=== PATIENT | female | born 1990 | race Caucasian/White ===

== ENCOUNTER 2017-02-18 09:41 | Inpatient (IN) | payer OTHER ==
[~2017-02-18] VITALS: Ht 170.2 cm; Wt 108.4 kg
[2017-02-18] MEDS ORDERED: Hemorrhage Kit, Post Partum XX ONE (10:50)
[2017-02-18] MEDS ORDERED: fentaNYL-PF 50 mCg/mL 2 mL Inj IVPUSH PRN (10:50)
[2017-02-18] MEDS ORDERED: Carboprost 250 mCg/mL Inj IM PRN (10:50)
[2017-02-18] MEDS ORDERED: Oxytocin 30 Units/500 mL LR 30 UNITS in IV Premix 1 EACH IV PRN (10:50)
[2017-02-18] MEDS ORDERED: Lactated Ringer's 1,000 ML IV PRN (10:50)
[2017-02-18] MEDS ORDERED: Sodium Chloride LOK Flush 10 mL Syringe IVFLUSH PRN (10:50)
[2017-02-18] MEDS ORDERED: Methylergonovine 0.2 mg/mL Inj IM PRN (10:50)
[2017-02-18] MEDS ORDERED: Ondansetron 2 mg/mL 2 mL Inj IVPUSH PRN ×2 (10:50→15:45)
[2017-02-18] MEDS ORDERED: Oxytocin 10 Unit/mL Inj IM PRN (10:50)
[2017-02-18 11:02] LABS: Mean Corpuscular Volume 89.6 fL (81-100)
[2017-02-18] MEDS: Lactated Ringer's 1,000 ML IV SCH ×5 (13:17→23:42)
--- NOTE | 2017-02-18 13:43 | HP ---
[address] [address] HISTORY AND PHYSICAL PATIENT: IMTIAZ RO : 1990 MR#: [id number] ADMIT: 02/18/2017 JOB ID: [id number] CHIEF COMPLAINT: Spontaneous rupture of membranes. HISTORY OF PRESENT ILLNESS: This is a 27-year-old G 1, P 0 female at 39 + 5 weeks gestation with an estimated date of confinement of February 20, 2017, complaining of spontaneous rupture of membranes at approximately 7 this morning. Her is complicated by obesity with BMI of 39. This is a 27-year-old G 1, P 0 female presenting at 39 + 5 weeks gestation with an EDC of February 20, 2017, complaining of spontaneous rupture of membranes. Her was dated by first trimester ultrasound. Her was complicated by obesity. At the time of admission, she notes normal movement. No loss of fluid. Contractions every 3 minutes. No vaginal bleeding. PAST MEDICAL HISTORY: Denies. PAST SURGICAL HISTORY: Denies. OBSTETRICAL HISTORY: G 1, P 0 as noted above. SOCIAL HISTORY: No tobacco, alcohol or drug use. MEDICATIONS: Include vitamins. ALLERGIES: She has no known drug allergies. LABORATORY DATA: Showed blood type AB positive, antibody screen negative, rubella immune, varicella immune, hep B surface antigen negative, RPR nonreactive, HIV negative, GBS negative. Objectively, her blood pressure is 119/70, her heart rate is 84, her respiratory rate is 17, her temperature is 36 degrees. In general, she is awake, alert, oriented, in no acute distress. She does breathe through her contractions. Her abdomen is soft. It is nontender, nondistended. EFW is approximately 9 pounds. Extremities show no tenderness or edema. Vaginal exam by the nurse shows that she is 2.5 cm dilated, 60% effaced and -2 station which is unchanged after two 2 hours after admission. heart tones show 145 baseline, moderate variability with accelerations present. She is dayday every 2-6 minutes. ASSESSMENT AND PLAN: This is a 27-year-old G 1, P 0, at 39 + 5 weeks gestational age admitted for spontaneous rupture of membranes at term. complicated by obesity. PLAN: She did rupture approximately 6 hours ago with light meconium present. She is dayday but has noted minimal cervical change so Pitocin will be started at this time. She is GBS negative and no antibiotics are indicated. We will continue to titrate Pitocin per protocol. We will continue expectant management at this time.
[2017-02-18] MEDS ORDERED: Lactated Ringer's 500 ML IV ONE (15:42)
[2017-02-18] MEDS ORDERED: EPHEDrine Sulfate 50 mg/mL Inj IVPUSH PRN (15:45)
[2017-02-18] MEDS ORDERED: Atropine 1 mg/10 mL (Code) Syringe IVPUSH PRN (15:45)
--- NOTE | 2017-02-18 15:50 | PCM.HPANE ---
Patient Data Surgeon Admitting Provider:Sheryl Linares MD Attending Provider:Sheryl Linares MD Primary Care Physician:Aurora Morgan Other Provider: Reason for Visit LABOR LABOR Ht/WT & BMI Body Mass Index Allergies Coded Allergies: No Known Allergies (Unverified , 02/18/17) Past Anesthesia History Anesthesia History: Denies:: Abnormal Airway, Anesthesia Reactions, Difficult Intubation, Fam Anesthesia Reaction, Fam Malignant Hypertherm, Malignant Hyperthermia History History of ENT Problems?: No HEENT History: Denies:: Abnormal Airway Cataracts Difficult Intubation Dysphagia Glaucoma Hearing Problem Sinus Problem TMJ Denture Type: None Teeth Condition: Within Normal Limits (Tongue Piercing) Hx of Heart Problems?: No Cardiovascular History: Denies:: AICD Abdominal Aortic Aneurism Atrial Fibrillation Cardiac Surgery Chest Pain Congestive Heart Failure Coronary Artery Disease Edema Heart Murmur Hypertension Irregular Heartbeat Pacemaker Peripheral Vascular Rheumatic Fever Thrombophlebitis Valvular Heart Disease Hx of Respiratory Problem?: No Respiratory History: Denies:: Asthma COPD Chest Surgery Cough Dyspnea Emphysema Hemoptysis Oxygen Administration Pneumonia Pulmonary Embolism Tuberculosis Use of C-PAP Machine Use of Inhalers / NEBS Hx Neurologic Problems?: No Neurological History: Denies:: Alzheimer's Disease CVA Dementia Dizziness Headaches Multiple Sclerosis Parkinson's Disease Peripheral Neuropathy Seizures TIA Hx of GI Problems?: No Gastrointestinal History: Denies:: Cirrhosis Diverticulitis Gall Bladder Disease Gastroesphageal Reflux Gastrointestinal Bleeding Heartburn Hepatitis Hiatal Hernia Liver Disease Rectal Bleeding Hx of Problems?: No Genitourinary History: Denies:: HX of Hemodialysis Kidney Stones Urinary Tract Infection HX of Peritoneal Dialysis: No Female Hx: Denies:: Currently Endometriosis Pelvic Inflammatory Problems with Breasts? Skin History: Denies:: History Skin Disorders? Pressure Ulcers Hx Musculoskeletal Problems?: No Musculoskeletal History: Denies:: Back Injury Degenerative Joint Fibromyalgia Joint Replacement Musculoskeletal Trauma Myasthenia Gravis Osteoarthritis Rheumatoid Arthritis Systemic Lupus Hx of Psycho/Social Problems?: No Psycho Social History: Denies:: Anxiety Bipolar Disorder Hx Depression Suicide Attempt Hx Surgeries?: No Hx Any Other Health Problems?: No Other History: Denies:: Cancer Endocrine Disease Hospitalization Thyroid Disease History Blood Transfusions: Denies:: Accept Blood Products? Blood Transfuse Reaction Blood Transfusions Hx Diabetes: No Hx Alcohol Use: NoHx Substance Use: No Smoking Status: Never Smoker Have You Smoked inLast 12 mo: No Stop/Bang Risk Assessment Category Category 1A: Patient has history of documented sleep apnea, and HAS NOT received any narcotic, sedative or anesthesia administration during this stay. Category 1B: Patient has history of documented sleep apnea, and HAS received any narcotic , sedative or anesthesia administration during this stay Category 2: Patient has SUSPECTED Obstructive Sleep Apnea, and HAS received any narcotic , sedative or anesthesia administration during this stay. Category 3: Patient has SUSPECTED Obstructive Sleep Apnea and HAS NOT received narcotic, sedative or anesthesia administration during this stay. Category 4: Outpatient in Procedural Areas with known sleep apnea or who screen positive for High Risk via the STOP/BANG questionnaire. Exam Exam General Appearance: Alert, Oriented X3, Cooperative, No Acute Distress HEENT/AIRWAY: MP 2, Neck Movement (from), Mouth Opening (moderate opening, Removal Tongue Piercing) Lungs: Normal Air Movement Heart: Exam Unremarkable Meds/Labs/Diagnostics Admission Meds Current Medications Lactated Ringer's (Lr) 1,000 ml @ 125 mls/hr Q8H IV Last administered on t 13:17; Start 02/18/17 at 10:50 Labs Test 02/18/17 09:45 White Blood Count 12.9th/mm3 (3.8-10.1) Red Blood Count 4.33mil/mm3 (3.90-5.20) Hemoglobin 13.0g/dL (12.0-15.6) Hematocrit 38.8% (35.0-46.0) Mean Corpuscular Volume 89.6fL (81-100) Mean Corpuscular Hemoglobin 30.0pg (27.0-35.0) Mean Corpuscular Hemoglobin Concent 33.5% (32.0-37.0) Red Cell Distribution Width 13.2% (12.3-15.4) Platelet Count 285bil/L (150-400) Plan Impression Patient chart reviewed, patient interviewed and anesthestic plan with risks, benefits, and alternatives discussed, and informed consent obtained. NPO per Anesth. Guidelines: No ASA Physical Status: ASA2 Mod Systemic Disease Anesthetic Plan: Epidural Bene/Risks/Altern/Consents: Yes HP Complete Prior to Induction: Yes Juan Antonio Cuba MD February 18, 2017 15:50
[2017-02-18] MEDS: Sodium Chloride LOK Flush 10 mL Syringe IVFLUSH SCH (16:30)
[2017-02-18] MEDS ORDERED: Acetaminophen IV 1,000 MG in IV Premix 1 EACH IV ONE (19:20)
--- NOTE | 2017-02-18 20:16 | PCM.ANEP1 ---
Post Anesthesia Phase 1 PACU Phase 1 Assessment Anesthetic Administered: Epidural Level of Alertness: Awake, talking WILKS's with Equal Strength: No Pain: Yes Nausea or Vomiting: No Cardiovascular Function and Hy: No Lungs: Normal Air Movement Dermatome Level: T10 (Umbilicus) Complications: No Follow up Care: No Juan Antonio Cuba MD February 18, 2017 20:16
[2017-02-19] MEDS: Sodium Chloride LOK Flush 10 mL Syringe IVFLUSH SCH ×3 (00:30→19:00)
[2017-02-19] MEDS: Lactated Ringer's 1,000 ML IV SCH ×5 (01:12→22:31)
[2017-02-19] MEDS: fentaNYL 2 mCg/mL-Bupiv 0.125% 100 ML EPIDURAL SCH ×2 (02:53→10:24)
[2017-02-19] MEDS ORDERED: Ketamine 10 mg/mL 20 mL Inj ONE (11:35)
[2017-02-19] MEDS ORDERED: fentaNYL-PF 50 mCg/mL 2 mL Inj ONE (11:35)
[2017-02-19] MEDS ORDERED: Sodium Citrate-Citric Acid 15 mL Solution PO SCH (12:45)
[2017-02-19] MEDS ORDERED: CeFAZolin Inj 2 GM in IV Premix 1 EACH IV ONE (12:45)
--- NOTE | 2017-02-19 13:50 | PROG NOTE ---
[address] [address] PROGRESS NOTE PATIENT: IMTIAZ RO : 1990 MR#: [id number] ADMIT: 02/18/2017 JOB ID: [id number] DATE: 02/19/2017 SUBJECTIVE: A 27-year-old female 1, para 0, at full term presented to [facility] for rupture of membranes yesterday at 7 o'clock. She has been started on Pitocin induction. She had slow progress in the latent phase and eventually she was noted to be 5 cm dilated this morning at 5:30. At that time , her Pitocin was in 20 units. When I saw her at 7:30, she was re-examined and noticed to be 6 cm dilation, -1 station. Her cervix was 80% effaced with more swollen on the right side and the baby was LOT position. IUPC was placed to have a better evaluation of contractions. At that time, it was noted she has a contraction every 3-4 minutes. With a single contraction it is about 50 [place]. The goal was achieved for her contraction to 180 [place] in 10 minutes and then re-evaluate her cervical dilation in 4 hours. At around 10:20, I replaced the IUPC because not a good monitor of her contractions and also decision was made to stop her Pitocin for 20 minutes and restart at a higher dose because of the frequent flat pattern which noticed before. After this, it was noted she started to have regular stronger contractions, gradually became more frequent. Before I came to re-evaluate her at 12:20, her contraction was adequate every 3-4 minutes and eight in 10 minutes was mostly above 180. I reexamined her. Her cervix still the same dilation with 80% effaced, and swelling more on the right side and station the same. There was a caput about 2-3 cm. heart tracing mostly in the labor process was reassuring. After I examined the patient, the heart tracing goes as high as 180, but with moderate variability. She has no fever. Her temperature was 37.1. At this time no other signs of chorio. I discussed with the patient of the finding and discussion about her labor process. We talked about she be ruptured more than 24 hours and there was minimal progress in the last 7 hours with adequate contractions. The decision was made to have a primary section. Discussed with the patient about the indication, benefits, risks of procedure. Informed consent signed. The patient understood the risk of infection, bleeding, injury to the organs around the uterus including but not limited to the bladder, ureters, major vessels, nerves. Informed consent signed. GABY
[2017-02-19] MEDS ORDERED: Lactated Ringer's 500 ML IV PRN (14:33)
[2017-02-19] MEDS ORDERED: Lactated Ringer's 1,000 ML IV SCH (14:33)
[2017-02-19] MEDS ORDERED: Hemorrhage Kit, Post Partum XX ONE (14:35)
[2017-02-19] MEDS ORDERED: fentaNYL-PF 50 mCg/mL 2 mL Inj IVPUSH PRN (14:35)
[2017-02-19] MEDS ORDERED: Dexamethasone 4 mg/mL Inj IVPUSH PRN (14:35)
[2017-02-19] MEDS ORDERED: Sodium Chloride LOK Flush 10 mL Syringe IVFLUSH PRN (14:35)
[2017-02-19] MEDS ORDERED: Oxytocin 10 Unit/mL Inj IM PRN (14:35)
[2017-02-19] MEDS ORDERED: Acetaminophen IV 1,000 MG in IV Premix 1 EACH IV PRN (14:35)
[2017-02-19] MEDS ORDERED: MetoCLOpramide 5 mg/mL 2 mL Inj IVPUSH PRN (14:35)
[2017-02-19] MEDS ORDERED: EPHEDrine Sulfate 50 mg/mL Inj IVPUSH PRN (14:35)
[2017-02-19] MEDS ORDERED: Methylergonovine 0.2 mg/mL Inj IM PRN (14:35)
[2017-02-19] MEDS ORDERED: Ondansetron 2 mg/mL 2 mL Inj IVPUSH PRN (14:35)
[2017-02-19] MEDS ORDERED: Phenylephrine 10,000 mCg/mL Inj IVPUSH PRN (14:35)
[2017-02-19] MEDS ORDERED: hydrALAZINE 20 mg/mL Inj IVPUSH PRN (14:35)
[2017-02-19] MEDS ORDERED: Labetalol 5 mg/mL 4 mL Inj IV PRN (14:35)
[2017-02-19] MEDS ORDERED: Carboprost 250 mCg/mL Inj IM PRN (14:35)
[2017-02-19] MEDS ORDERED: HYDROcodone-APAP 5-325 mg Tablet PO PRN (14:35)
[2017-02-19] MEDS ORDERED: HYDROmorphone 1 mg/mL Inj IVPUSH PRN (14:35)
[2017-02-19] MEDS ORDERED: Oxytocin 30 Units/500 mL LR 30 UNITS in IV Premix 1 EACH IV PRN (14:35)
[2017-02-19] MEDS ORDERED: LANOlin HPA 7 Gm Ointment TOPICAL PRN (14:35)
--- NOTE | 2017-02-19 15:06 | OP ---
[address] [address] OPERATIVE REPORT PATIENT: IMTIAZ RO : 1990 MR#: [id number] ADMIT: 02/18/2017 JOB ID: [id number] DATE OF SURGERY: 02/19/2017 SURGEON: Sheryl Linares MD PREOPERATIVE DIAGNOSIS(ES): Arrest dilation of cervix POSTOPERATIVE DIAGNOSIS(ES): Arrest dilation of cervix COPY ROOM TECHNICIAN: Jeanine Kendall MD (The assistant tennis professional with HEAVY REPAIRER is very necessary for this procedure for exposure and to have this obese patient procedure to go smoothly) INDICATIONS FOR PROCEDURE: This is a 27-year-old female, 1, para 1, now status post primary . The patient was admitted to [facility] for rupture of membranes and induction of labor started yesterday. She progressed to 5 cm this morning at 5:30 and 6 cm at 8 o'clock and no progress afterwards for at least 4 hours with adequate contractions confirmed by IUPC. Decision was made for primary section. Discussed with patient about the benefit, risk, indications, alternative of the procedure. Patient understood there is the risk of infection, bleeding, injury to the organs around the uterus including but not limited to the bladder, ureters, major vessels, nerves, and bowels. Informed consent signed. DETAILS OF PROCEDURE: The patient was transferred to operating room. After anesthesia was noted to be adequate, she was placed in dorsal supine position with a leftward tilt. She was prepared and draped in normal sterile fashion. A Pfannenstiel incision was placed with scalpel and this incision was carried through to the underlying fascia with Bovie. A transverse incision was placed on fascia and extended bilaterally by Jose scissors. The superior aspect of the incision was grasped by Kochtan, tented up. The underlying rectus muscle dissected off. The inferior aspect of the incision was grasped by Kochers tented up. The underlying rectus muscle was dissected off. The rectus muscle was in the midline. The underlying peritoneum identified and entered bluntly. This incision was extended both bluntly and sharply. At this time, the lower blade inserted to expose the lower segment of the uterus. The vesicouterine peritoneum identified and entered sharply with [place] scissors and extended bilaterally by Alfredo scissors. Bladder flap created digitally and a transverse incision was placed on the lower segment of uterus. At this time, the incision was extended bilaterally bluntly. All instruments cleared from the field. The infant's head was delivered atraumatically. Then, the shoulder and chest delivered without difficulty. The was dried on the field with a good tone and started crying spontaneously. Cord clamped and cut. The was handed to awaiting autocad. At this time regular cord blood collected. The placenta delivered spontaneously completely and examined and noticed a three-vessel cord. Then, the uterus was exteriorized. All debris and clots cleared from the field. The incision was closed by 0-Vicryl continuously with locked fashion. The second layer of the same suture was placed for imbrication. Hemostasis confirmed after the suture. The pelvis was irrigated by warm normal saline and the uterus was returned back to the abdominal cavity. The incision was re-examined and confirmed good hemostasis. Bilateral ovaries and tubes looked normal. The uterus itself looks normal. At this time, the fascia was reapproximated with 0-Vicryl continuously. The subcutaneous connective tissue was reapproximated with 2-0 Vicryl continuously. The skin was closed by 4-0 Monocryl subcutaneously. The patient tolerated the procedure well. All instrument, needles, laps and gauzes counted correct twice. The EBL was 500 cc. The score and weight was not available at dictation. [facility]
[2017-02-20] MEDS: oxyCODONE-Acetamin 5-325 mg Tablet PO PRN ×4 (00:06→14:51)
[2017-02-20] MEDS: Sodium Chloride LOK Flush 10 mL Syringe IVFLUSH SCH ×3 (00:30→16:30)
[2017-02-20] MEDS: Lactated Ringer's 1,000 ML IV SCH ×2 (06:31→14:31)
[2017-02-20 07:00] LABS: Mean Corpuscular Hemoglobin 29.9 pg (27.0-35.0)
--- NOTE | 2017-02-20 09:41 | PCM.PNOBPP ---
Subjective Date of Service February 20, 2017 Post : Primary Ceserean Delivery Visit History A 27-year-old female 1, para 0, s/p LTCS for failure to progress on 07/2017. Subjective She has no complaints this morning. Lochia: Normal Pain Management: PO pain meds Gastrointestinal: Good Appetite, No N/V Labs Laboratory Tests 72 Hours Test 02/18/17 09:45 02/20/17 06:40 White Blood Count 12.9th/mm3 (3.8-10.1) 13.0th/mm3 (3.8-10.1) Red Blood Count 4.33mil/mm3 (3.90-5.20) 3.51mil/mm3 (3.90-5.20) Hemoglobin 13.0g/dL (12.0-15.6) 10.5g/dL (12.0-15.6) Hematocrit 38.8% (35.0-46.0) 32.3% (35.0-46.0) Mean Corpuscular Volume 89.6fL (81-100) 92.0fL (81-100) Mean Corpuscular Hemoglobin 30.0pg (27.0-35.0) 29.9pg (27.0-35.0) Mean Corpuscular Hemoglobin Concent 33.5% (32.0-37.0) 32.5% (32.0-37.0) Red Cell Distribution Width 13.2% (12.3-15.4) 13.5% (12.3-15.4) Platelet Count 285bil/L (150-400) 237bil/L (150-400) Exam Vital Signs Vital Signs: VS reviewed, stable Exam Abdomen: Fundus firm Perineum: Intact Extremities: No cords Lungs: Clear to Auscultation Heart: Exam Unremarkable General: Alert, Oriented X3, Cooperative, No Acute Distress OB Post Assessment/Plan Problems: (1) care and examination immediately after delivery Plan: is doing well and has no complaints today and we'll anticipate discharge home tomorrow. Status: Acute ICD Code: Z39.0 Pain Evaluation: Adequate Pain Control VTE Mechanical Devices: Intermittant Pneumatic CD Post plan: Continue routine post care, Discharge home tomorrow Jeanine Kendall MD February 20, 2017 09:41
[2017-02-21] MEDS ORDERED: DOCU-41 PO (09:47)
[2017-02-21] MEDS ORDERED: OXYC1TAB24 PO (09:47)
[2017-02-21] MEDS ORDERED: IBUP800T28 PO (09:47)
--- NOTE | 2017-02-21 09:47 | PCM.DIOB ---
Obstetrical Disch Instruction Dates of Hospitalization Date of Hospital Admission February 18, 2017 at 09:42 Providers Admitting Physician: Sheryl Linares MD Primary Care Physician: Aurora Morgan Attending Physician: Sheryl Linares MD Discharge Diagnosis Post Operative diagnosis section for arrest of dilation Problems: (1) care and examination immediately after delivery Status: Acute ICD Code: Z39.0 Diet Discharge Diet: No restrictions Activity Discharge Activity-General: Pelvic Rest for 6 weeks, Try not to overdue, Activity as pain allows, Activity as energy allows, No lifting >10 pounds for 4- 6 weeks Dressing and Incisional Care Dressing Care: Keep dressing clean, dry & intact, Allow Steri Stripes to fall off Hygiene: May shower, NO bathtub, hot tub or whirlpool Additional Instructions Discharge Instructions Call your provider for any questions or concerns. Including any of the following : * A change in odor from your episiotomy/stitches area or vaginal flow. * Temperature higher than 100.4 degrees * Heavy bright red bleeding * Your breast develops red painful areas or red streaks * Baby Blues and Depression Follow Up Plan Follow-up appointment: Weeks (2 and 6 ) Call your provider for: Fever or Chills, Shortness of breath, Heavy vaginal bleeding Maria Luisa Whitehead MD February 21, 2017 09:46
--- NOTE | 2017-02-21 10:37 | DIS ---
[address] [address] DISCHARGE SUMMARY PATIENT: IMTIAZ RO : 1990 MR#: [id number] ADMIT: 02/18/2017 JOB ID: [id number] DIS: DATE OF ADMISSION: 02/18/2017 DATE OF DISCHARGE: 02/21/2017 ADMISSION DIAGNOSES: 1. 1, para 0 at 39 plus 5 weeks' gestation with spontaneous rupture of membranes. 2. Obesity. DISCHARGE DIAGNOSIS: 1. 1, para 0 at 39 plus 5 weeks' gestation with spontaneous rupture of membranes. 2. Obesity. 3. Status post primary low-transverse section. PROCEDURE PERFORMED: Primary low transverse section of a live born female infant, born on February 19, 2015, at 1346 hours, weighing 3409 g, or 7 pounds 8 ounces, with Apgars of 8 at one minute, 9 at five minutes. section due to arrest of dilation. REASON FOR ADMISSION AND HOSPITAL COURSE: This is a 27-year-old, G1, P0 female who presented at 39 plus 5 weeks' gestation with an EDC of 02/20/2017, complaining of spontaneous rupture of membranes. was complicated by obesity with a BMI of 39. She presented on the afternoon of the complaining of rupture of membranes. laboratory data showed a blood type of AB positive, antibody screen negative, rubella immune, varicella immune, hep B surface antigen negative, RPR nonreactive, HIV negative, GBS negative. Pitocin was started per protocol the afternoon of the which she did not make much cervical change on her own. At the time of admission, she was 2 cm dilated. She continued on Pitocin throughout the and through the , and her Pitocin was increased to 20, but she was noted to have made no cervical change. In the operation specialist hours of the , her Pitocin was decreased by half and increased again up to 20, at which point she changed to 5 cm dilated. On the morning of the , an intrauterine pressure catheter was then placed, and she progressed to 6 cm dilated. She made little change beyond this, and despite discontinuing the Pitocin for periods of time and then re-titrating back up, she did not change beyond 6 cm dilated and was noted to have increase in caput. She also had been ruptured for greater than 24 hours at this point in time, and after discussing with her the risks, benefits, and alternatives, a section was decided on for failure to progress despite adequate contractions with Pitocin and rupture of membranes for approximately 30 hours. Please see the operative report for details. By day number one, she was doing very well. Her pain was well controlled with Percocet and ibuprofen. She is ambulating and voiding without difficulty after her catheter was removed. By day number two, she was again doing very well. She had discontinued Percocet and was using only ibuprofen for management of her pain. She was ambulating and voiding without difficulty. She was passing flatus, tolerating a regular diet without any nausea or vomiting, and her lochia was noted to be minimal. It was at this point in time that she was deemed stable for discharge. PHYSICAL EXAMINATION: On the day of discharge, her blood pressure is 117/68, her heart rate is 109, respiratory rate of 16, and her temperature is 97.9. In general, she is awake, alert, oriented, in no acute distress. Her abdomen is soft, appropriately tender, nondistended. Her incision is clean, dry, and intact. Her extremities show trace lower extremity edema. No calf tenderness. LABORATORY DATA: At the time of admission, her white count was 12.9, her hemoglobin 13.0, platelets were 285. On postoperative day number one, her white count was 13.0, her hemoglobin was 10.5, and her platelets were 237. INSTRUCTIONS AT DISCHARGE: The patient was advised to remain on pelvic rest for six weeks, including no tampons, douching, or intercourse. She was asked to call with any signs and symptoms of infection, including fever greater than 100.5 degrees, severe pain, malodorous vaginal discharge or bleeding greater than one pad per hour. She was asked to notify us for any increasing erythema or discharge from her incision. She was asked to follow up in two weeks for an incision check and again in six weeks for routine examination. She was breast-feeding without difficulty at the time of discharge. All questions and concerns of the patient were answered. She was deemed stable for discharge on postoperative day number two.
[2017-02-21 12:11] VITALS: BP 107/69; PULSE 90; RESP 16
== END 2017-02-21 15:06 | disposition home or self-care (01) | DRG 766 ==
LOC: FBCO 09:41 → FBC 09:42
PROVIDERS: ADMIT Obstetrics & Gynecology; ATTEND Obstetrics & Gynecology
PROC: 3E033VJ Introduction of Other Hormone into Peripheral Vein, Percutaneous Approach (ICD-10-PCS; 2017-02-18)
PROC: 10H073Z Insertion of Monitoring Electrode into Products of Conception, Via Natural or Artificial Opening (ICD-10-PCS; 2017-02-19)
PROC: 10D00Z1 Extraction of Products of Conception, Low, Open Approach (ICD-10-PCS; principal; 2017-02-19 13:15)
DX: O62.1 Secondary uterine inertia (principal); O99.213 Obesity complicating pregnancy, third trimester; Z3A.39 39 weeks gestation of pregnancy; O77.0 Labor and delivery complicated by meconium in amniotic fluid; E66.09 Other obesity due to excess calories; Z68.39 Body mass index [BMI] 39.0-39.9, adult; Z37.0 Single live birth